=== PATIENT | female | born 1995 | race Caucasian/White ===

== ENCOUNTER 2022-03-20 16:00 | Emergency (ER) | payer OTHER, SELFPAY ==
[2022-03-20 16:11] VITALS: BP 131/70; PULSE 86; RESP 16; TEMP 37; O2SAT 99
--- NOTE | 2022-03-20 16:51 | ED.GENADULT ---
HPI - General Adult General Chief complaint: Nausea/Vomiting/Diarrhea Stated complaint: Vomiting/Diarrhes Source: patient Mode of arrival: ambulatory Limitations: no limitations History of Present Illness HPI narrative: Patient presents for evaluation of nausea, vomiting, diarrhea and abdominal cramping. Symptom onset yesterday. No blood or mucus in the stool. No recent antibiotic use. She recently changed to a vegetarian diet, approximately 1 week ago. No fever, chills, cough but she has had some shortness of breath. She smokes a few cigarettes per day. No recent sick contacts to her knowledge. She had COVID back about one year ago. Related Data Home Medications Medication Instructions Recorded Confirmed gabapentin 300 mg capsule 300 mg PO DAILY 03/20/22 03/20/22 Allergies Allergy/AdvReac Type Severity Reaction Status Date / Time No Known Allergies Allergy Verified 03/20/22 16:11 Review of Systems Review of Systems: CONSTITUTIONAL: Denies fever, chills, or sweats. EYES: Denies visual changes, redness, or discharge. ENT: Denies rhinorrhea, congestion, sore throat, or otalgia. CARDIOVASCULAR: Denies chest pain, palpitations, or edema. RESPIRATORY: Reports shortness of breath. Denies cough GASTROINTESTINAL:Reports abdominal cramping, nausea, vomiting and diarrhea. GENITOURINARY: Denies dysuria or hematuria. SKIN: Denies rash or itching. MUSCULOSKELETAL: Denies back pain, joint pain, or myalgia. NEUROLOGIC: Denies headache, numbness, dizziness, or weakness. PSYCHIATRIC: Denies anxiety or depression. [facility] Past Medical History Medical History (Updated 03/20/22 @ 17:28 by DEION RubiP, ) No pertinent past medical history Surgical History Surgical History No pertinent past surgical history Family History Family History Mother Family history non-contributory Social History Social History (Updated 03/20/22 @ 16:54 by DEION RubiP, ) Smoking packs per day: 0.2 Smoking cigarettes per day: 4.0 Smoking status: Current every day smoker Alcohol intake: current Alcohol use details: social Substance use: never Living arrangements: with family Gender identity (if verbalized by the patient): Female Sexual Orientation (if Verbalized by the Patient): Straight or Heterosexual Spiritual care concerns: No Exam Narrative: GENERAL: Well-appearing, well-nourished, and in no acute distress. HEAD: Normocephalic, atraumatic. EYES: PERRLA and EOMI. ENT: Nares clear, no rhinorrhea or epistaxis. Mucous membranes moist. Bilateral tonsillar enlargement without erythema or exudate. Bilateral TMs pearly bailey nonbulging NECK: Supple. No adenopathy or masses. No carotid bruits or JVD CHEST: Clear to auscultation. No respiratory distress. No wheezes rales or rhonchi HEART: Regular rate and rhythm. No murmur heard. Normal peripheral pulses. ABDOMEN: Soft, nontender, nondistended, normal active bowel sounds. EXTREMITIES: Normal range of motion. No edema. SKIN: Warm, dry, no rash. NEURO: No focal deficits. Alert and oriented x3. PSYCH: Normal mood and affect. Course Course Emergency Course: This is a 26-year-old female who presented for evaluation of nausea, vomiting, abdominal cramping, and diarrhea. On exam she has tonsillar swelling without erythema or exudate. She denies any sore throat. States that she typically has this finding on exam around this time of year. In terms of her GI symptoms, her influenza was negative. She was also tested for COVID which was negative. She was given Zofran. Symptoms improved. She feels well enough to go. Increase hydration. Continue to take Zofran as needed. She is advise she was given emergency department in the event that she experiences abdominal pain to rule out colitis. She should follow up with primary provide
[2022-03-20] MEDS: ONDANSETRON HCL ODT 4 MG TABLET PO (16:56)
== END 2022-03-20 17:33 | disposition home or self-care (01) ==
PROVIDERS: Emergency Provider Nurse Practitioner; PCP Emergency Medicine
DX: B34.9 Viral infection, unspecified (principal); Z20.822 Contact with and (suspected) exposure to COVID-19; F17.210 Nicotine dependence, cigarettes, uncomplicated; Z86.16 Personal history of COVID-19
CPT/HCPCS: 87426; 87804; 99213; A9270; C9803; G0463

== ENCOUNTER 2022-04-21 11:46 | Emergency (ER) | payer OTHER, MEDICAID, SELFPAY ==
--- NOTE | ~2022-04-21 | XR_ITS ---
EXAMINATION: XR wrist LT min 3V DATE: 04/21/2022 12:15 INDICATION: Left wrist injury. TECHNIQUE: 4 views of left wrist were obtained. COMPARISON: None. FINDINGS: Bone alignment is normal. No fracture. Joint spaces are well maintained. There is a dorsal laceration of the wrist. IMPRESSION: 1. No fracture or radiopaque foreign body. Reviewed, dictated and finalized at location A. SFORMER MOLDER
[2022-04-21 11:51] VITALS: BP 137/81; PULSE 92; RESP 18; TEMP 36.8; O2SAT 98
--- NOTE | 2022-04-21 12:04 | ED.UPPEXIN ---
HPI - Extremity Injury (Upper) General Chief Complaint: Extremity Injury, Lower Stated Complaint: Left Arm Injury Source: patient, family and RN notes reviewed History of Present Illness HPI narrative: 26 yo F presents to urgent care with complaints of left dorsal wrist pain and distal FA pain and swelling along with a laceration overlying the dorsal wrist. Pt states [employer], a lawnmower fell approximately 2 feet onto her left distal FA. Pt denies any numbness or tingling. Denies any other injury. Pt is UTD on her tetanus vaccination. Related Data Home Medications Medication Instructions Recorded Confirmed gabapentin 300 mg capsule 300 mg PO DAILY 03/20/22 03/20/22 Allergies Allergy/AdvReac Type Severity Reaction Status Date / Time No Known Allergies Allergy Verified 04/21/22 12:39 Review of Systems Review of Systems: CONSTITUTIONAL: Denies fever, chills, or sweats. EYES: Denies visual changes, redness, or discharge. ENT: Denies otalgia and sore throat CARDIOVASCULAR: Denies chest pain, palpitations, or edema. RESPIRATORY: Denies cough or dyspnea. GASTROINTESTINAL: Denies abdominal pain, nausea, vomiting, or diarrhea. GENITOURINARY: Denies dysuria or hematuria. SKIN: laceration MUSCULOSKELETAL: Left lower forearm/wrist pain and swelling. NEUROLOGIC: Denies headache, numbness, or weakness. [facility] Past Medical History Medical History (Updated 04/21/22 @ 12:21 by Judie Abbott, RN OR LVN) No pertinent past medical history Surgical History Surgical History No pertinent past surgical history Family History Family History Mother Family history non-contributory Social History Social History (Updated 03/20/22 @ 16:54 by Donavon Snyder, [facility], ) Smoking packs per day: 0.2 Smoking cigarettes per day: 4.0 Smoking status: Current every day smoker Alcohol intake: current Alcohol use details: social Substance use: never Living arrangements: with family Gender identity (if verbalized by the patient): Female Sexual Orientation (if Verbalized by the Patient): Straight or Heterosexual Spiritual care concerns: No Comments At the time of my signature, I reviewed and agree with the nursing past medical, surgical, social, and family history. There is no relevant family history pertinent to the patient complaint. Exam Narrative: GENERAL: This is a well-nourished, well-developed patient, in no apparent distress. HEAD: normocephalic, atraumatic. EYES: Sclera clear/white. Vision is grossly intact. EARS: External ears normal, auditory canals clear and without drainage. Hearing grossly intact. NOSE: External nose normal with no obvious nasal discharge, nares without redness, no rhinorrhea. NECK: Neck supple, non-tender without lymphadenopathy, masses or thyromegaly. CARDIOVASCULAR: Regular rate RESPIRATORY: No respiratory distress GASTROINTESTINAL: Abdomen soft, non-tender, nondistended. Bowel sounds are active. No hepato-splenomegaly, or palpable masses. No guarding. SKIN: 1.5 cm laceration to dorsal left wrist NEURO: awake, alert, and oriented to person, place and time. There were no obvious focal neurologic abnormalities. EXTREMITIES: Left distal forearm/dorsal wrist pain and swelling. Course Course Level of Care: Express Care Visit Vital Signs Vital signs: Vital Signs Temperature 98.3 F 04/21/22 11:51 Pulse Rate 92 04/21/22 11:51 Respiratory Rate 18 04/21/22 11:51 Blood Pressure 137/81 04/21/22 11:51 Pulse Oximetry 98 04/21/22 11:51 Oxygen Delivery Room Air 04/21/22 11:51 Temperature 98.3 F 04/21/22 11:51 Pulse Rate 92 04/21/22 11:51 Respiratory Rate 18 04/21/22 11:51 Blood Pressure 137/81 04/21/22 11:51 Pulse Oximetry 98 04/21/22 11:51 Oxygen Delivery Room Air 04/21/22 11:51 Reviewed Procedures Laceration Lacerati
== END 2022-04-21 12:50 | disposition home or self-care (01) ==
PROVIDERS: Emergency Provider Nurse Practitioner Family; PCP Family Medicine
DX: S61.512A Laceration without foreign body of left wrist, initial encounter (principal); F17.210 Nicotine dependence, cigarettes, uncomplicated; W45.8XXA Other foreign body or object entering through skin, initial encounter; W22.8XXA Striking against or struck by other objects, initial encounter
CPT/HCPCS: 12001; 73110; 96372; 99213; G0463

== ENCOUNTER 2023-06-11 10:27 | Emergency (ER) | payer OTHER, SELFPAY ==
[2023-06-11 10:33] VITALS: BP 109/75; PULSE 83; RESP 14; TEMP 37.3; O2SAT 100
--- NOTE | 2023-06-11 10:55 | ED.GENADULT ---
HPI - General Adult General Chief complaint: Nausea/Vomiting/Diarrhea Stated complaint: Vomiting Time Seen by Provider: 06/11/23 10:50 Source: patient, RN notes reviewed and old records reviewed Mode of arrival: ambulatory Limitations: no limitations History of Present Illness HPI narrative: 27 year old female who presents to [facility] with complaints of nausea and vomiting since last night with some lower abdominal cramping. Patient reports that she had 6 emesis last night and has had 2 emesis today, has been able to keep some water down this morning. Patient continues to state some nausea, denies any episodes of diarrhea or any known fevers. Patient does have some suprapubic tenderness on palpation, reports some lower back pain and some mild burning with urination. MD complaint: nausea and vomiting Onset (ago): day(s) (since yesterday evening) Severity scale (1-10): 6 Treatments prior to arrival: none Related Data Home Medications Medication Instructions Recorded Confirmed gabapentin 300 mg capsule 300 mg PO TID 03/20/22 06/11/23 Allergies Allergy/AdvReac Type Severity Reaction Status Date / Time No Known Allergies Allergy Verified 06/11/23 10:40 Review of Systems Review of Systems: CONSTITUTIONAL: Denies fever, chills, or sweats. EYES: Denies visual changes, redness, or discharge. ENT: Denies rhinorrhea, congestion, sore throat, or otalgia. CARDIOVASCULAR: Denies chest pain, palpitations, or edema. RESPIRATORY: Denies cough or dyspnea. GASTROINTESTINAL: Reports lower abdomen cramping, nausea, vomiting, no diarrhea. GENITOURINARY: Reports mild burning with urination, no hematuria, no CVA tenderness SKIN: Denies rash or itching. MUSCULOSKELETAL: Reports some lower back pain,no joint pain, or myalgia. NEUROLOGIC: Denies headache, numbness, or weakness. PSYCHIATRIC: Reports history of anxiety or depression. All systems reviewed & are unremarkable except as noted in HPI and below PMFSH Past Medical History Medical History (Updated 06/12/23 @ 13:19 by Zehra Latham NP) No pertinent past medical history Pain in both hands Surgical History Surgical History No pertinent past surgical history Family History Family History Mother Family history non-contributory Social History Social History (Updated 03/20/22 @ 16:54 by GARO Rubi, ) Smoking packs per day: 0.2 Smoking cigarettes per day: 4.0 Smoking status: Current every day smoker Alcohol intake: current Alcohol use details: social Substance use: never Living arrangements: with family Gender identity (if verbalized by the patient): Female Sexual Orientation (if Verbalized by the Patient): Straight or Heterosexual Spiritual care concerns: No Comments At time of signature, agree with nursing past medical, surgical, social and family history. There is no relevant family history pertinent to the presenting complaint Exam Narrative: GENERAL: Well-appearing, well-nourished, and in no acute distress. HEAD: Normocephalic, atraumatic. EYES: PERRLA and EOMI. ENT: Nares clear, no rhinorrhea or epistaxis. Mucous membranes moist.TM's normal throat pink with no swelling or exudates. NECK: Supple.no lymphadenopathy CHEST: Clear to auscultation. No respiratory distress.no cough noted SAO2 100% on room air HEART: Regular rate and rhythm. No murmur heard. Normal peripheral pulses. ABDOMEN: Soft, tender over suprapubic area, negative McBurney point tenderness, nondistended, normal active bowel sounds.nausea and vomiting episodes, reports mild burning with urination and some lower back pain. EXTREMITIES: Normal range of motion. No edema. SKIN: Warm, dry, no rash. NEURO: No focal deficits. Alert and oriented x3. Course Course Emergency Course: Patient is aware of diagnosis, understands and agrees to rashaun
== END 2023-06-11 11:45 | disposition home or self-care (01) ==
PROVIDERS: Emergency Provider Registered Nurse; PCP Internal Medicine
DX: R30.0 Dysuria (principal); R10.30 Lower abdominal pain, unspecified; M54.50 Low back pain, unspecified; R11.2 Nausea with vomiting, unspecified; F17.210 Nicotine dependence, cigarettes, uncomplicated
CPT/HCPCS: 81003; 81025; 87086; 99213; G0463

== ENCOUNTER 2024-02-28 16:19 | Emergency (ER) | payer OTHER, SELFPAY ==
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
[2024-02-28 16:38] VITALS: BP 113/61; PULSE 80; RESP 16; TEMP 36.8; O2SAT 100
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
== END 2024-02-28 17:35 | disposition home or self-care (01) ==
PROVIDERS: Emergency Provider Nurse Practitioner; PCP Internal Medicine
DX: S06.0XAA Concussion with loss of consciousness status unknown, initial encounter (principal); S39.012A Strain of muscle, fascia and tendon of lower back, initial encounter; S29.012A Strain of muscle and tendon of back wall of thorax, initial encounter; F17.210 Nicotine dependence, cigarettes, uncomplicated; V43.63XA Car passenger injured in collision with pick-up truck in traffic accident, initial encounter
CPT/HCPCS: 72100; 99213; G0463

== ENCOUNTER 2024-07-20 14:34 | Emergency (ER) | payer OTHER, SELFPAY ==
[2024-07-20 14:40] VITALS: BP 116/76; PULSE 79; RESP 20; TEMP 36.6; O2SAT 100
--- OUTSIDE RECORDS SUMMARY | 2024-07-20 14:49 | XMS_ITS | Encounter Summary ---
Author Organization [facility] Address [address] [place] [address] Phone Care Team Providers Care Street Cleaning Equipment Operator Name Role Phone Jacques Garner MD Primary Care Provider [phone] Reason for Visit * Reason Comments Medication Refill Encounter Details Date Type Department Care Team (Late st Contact Info) Description 08/19/2022 Refill [facility] - Internal Medicine - [place] [address] [place] [id number] Olya Coello, [facility] [address] [place] [address] Medication Refill Social History Tobacco Use Types Packs/Day Years Used Date Smoking Tobacco: Former Cigarettes Q uit: 04/18/2022 Passive Smoke Exposure: Past Smokeless Tobacco: Never Comments:socially Alcohol Use Standard Drinks/Week Comments Yes 0 (1 standard drink = 0.6 oz pure alcohol) binge drinking since 2019, drinks a fifth of [place] daily when binge drinking PHQ-2 Answer Date Recorded Total Score - Questions 1-9 3 02/2022 Education Answer Date Recorded What is the highest level of school you have completed or the highest degree you have received? GED or equivalent 02/2022 Sexually Active Control Partners Comments Yes Male Condom, Female Condom Female, Male Comments Unknown Sex and Gender Information Value Date Recorded Sex Assigned at Not on file Legal Sex Female 11:49 PM CDT Gender Identity Not on file Sexual Orientation Not on file documented as of this encounter Miscellaneous Notes * Telephone Encounter - Ck Mac MD - 08/20/2022 10:30 AM CDT Refill request approved. * Telephone Encounter - Christi Sanders RN - 08/20/2022 9:53 AM CDT Medication failed the protocol, provider to review and approve the medication order if appropriate. Requested Prescriptions Pending Prescriptions Disp Refills gabapentin (NEURONTIN) 300 MG Capsule [Pharmacy Med Name: Gabapentin 300 MG Oral Capsule] 30 Capsule 0 Sig: Take 1 Capsule by mouth nightly. Not Delegated - Anticonvulsants Excluding Benzodiazepines Protocol Failed - 08/19/2022 12:55 PM Failed - This refill cannot be delegated Passed - Visit with relevant provider in past 12 months or upcoming 90 days Recent Visits Date Type Provider Dept 07/10/22 Office Visit Jacques Garner MD [facility] 06/18/22 Office Visit Jacques Garner MD [facility] Showing recent visits within past 365 days and meeting all other requirements Future Appointments Date Type Provider Dept 09/25/22 Appointment Jacques Garner MD [facility] Showing future appointments within next 90 days and meeting all other requirements documented in this encounter Plan of Treatment Upcoming Encounters Date Type Department Care Team (Late st Contact Info) Description 08/11/2024 3:45 PM CDT Office Visit [facility] - Internal Medicine - [place] [address] [place] [id number] Jacques Garner MD [address] [place] [id number] documented as of this encounter Visit Diagnoses Not on filedocumented in this encounter Additional Health Concerns Assessment Noted Time PHQ-9 Depression Total Score: 3 06/19/19 3:00 PM CDT documented as of this encounter Care Teams Street Cleaning Equipment Operator Relationship Specialty Start Date End Date Jacques Garner MD [address] [place] [address] PCP - General Internal Medicine 06/18/22 documented as of this encounter
--- OUTSIDE RECORDS SUMMARY | 2024-07-20 14:49 | XMS_ITS | Referral Summary ---
Author Organization [facility] Address [address] [place] [address] Care Team Providers Care Technical Services Consultant Name Role Phone Cj Gray MD Unavailable Jacques Garner MD Primary Care Provider [phone] Encounters Date Type Department Care Team Description 07/08/2024 1:39 AM CDT - 07/08/2024 2:19 AM CDT Emergency [facility] Emergency Department [address] [place] [address] Discharge Disposition: Left without being seen from Last 3 Months Allergies No known active allergies Medications gabapentin (NEURONTIN) 300 mg capsule 09/20/19 22 Active ondansetron ODT (ZOFRAN-ODT) 4 mg disintegrating tabletIndications: nausea and vomiting Take 1 tablet (4 mg total) by mouth every 8 (eight) hours as needed for nausea or vomiting 12 tablet 05/23/19 23 Active Additional Information Patient not taking.Reported on 04/25/2023 baclofen (LIORESAL) 10 mg tablet Take 1 tablet (10 mg total) by mouth 3 (three) times a day as needed for muscle spasms for up to 20 days 20 tablet 05/23/19 23 Active dextroamphetamine- amphetamine XR (ADDERALL XR) 10 mg 24 hr capsule Take 1 capsule (10 mg total) by mouth daily 08/11/19 23 Active etonogestreL-ethin yl estradioL (NUVARING, ELURYNG) 0.12-0.015 mg/24 hr vaginal ring Insert vaginally and leave in place for 3 consecutive weeks, then remove for 1 week. 1 each 08/15/19 23 Active Additional Information Patient not taking.Reported on 04/25/2023 phenazopyridine (PYRIDIUM) 200 mg tablet Take 1 tablet (200 mg total) by mouth 3 (three) times a day as needed for bladder spasms 10 tablet 02/01/20 23 Active Additional Information Patient not taking.Reported on 04/25/2023 famotidine (PEPCID) 20 mg tabletIndications: Urticaria Treatment Adjunct Take 1 tablet (20 mg total) by mouth 2 (two) times a day 60 tablet 02/15/20 23 Active ciprofloxacin-dexA METHasone (Ciprodex) otic suspension INSTILL 4 DROPS INTO AFFECTED EAR(S) BY OTIC ROUTE 2 TIMES PER DAY FOR 7 DAYS 08/08/19 17 Active predniSONE (DELTASONE) 20 mg tablet Take by oral route. Active promethazine (PHENERGAN) 25 mg tablet TAKE 1 TABLET BY MOUTH EVERY 4 TO 6 HOURS NEEDED FOR NAUSEA 07/06/19 24 Active HYDROcodone-acetam inophen (NORCO) 5-325 mg per tabletIndications: Pain Take 1 tablet by mouth every 6 (six) hours as needed for pain 15 tablet 02/28/19 25 Active ketorolac (TORADOL) 10 mg tablet Take 1 tablet (10 mg total) by mouth every 6 (six) hours as needed for pain 20 tablet 02/28/19 25 Active methocarbamoL (ROBAXIN) 500 mg tablet Take 1 tablet (500 mg total) by mouth 2 (two) times a day 20 tablet 02/28/19 25 Active Active Problems Problem Noted Date Diagnosed Date Maternal family history of cancer 04/12/2023 Overview (04/12/2023): Per patient report - mother ovarian cancer, maternal gt aunt ovarian cancer, maternal gt aunt ovarian cancer, maternal grandmother colon cancer. Frequent UTI 04/12/2023 Encounter for preconception consultation 023 Encounter for evaluation regarding contraception options 08/14/2022 Assessment & Plan (08/14/2022 3:29 PM CDT): Options discussed She will try nuvaring Use reviewed To start day 4 of cycle Risk reviewed. Rto 3m for bp check. Amenorrhea 04/10/2021 Overview (04/10/2021): No period for 3m 03/2021 Assessment & Plan (08/14/2022 3:29 PM CDT): resolved Assessment & Plan (04/10/2021 11:23 AM DISPLAY DESIGNER): To usg, tsh RTO 3 weeks Routine screening for STI (sexually transmitted infection) 04/10/2021 Well woman exam 04/10/2021 Overview (04/10/2021): Pap- done today. To routine labs We didn't discuss colonoscopy, cuauhtemoc Gardasil- not discussed Contraception- condoms Assessment & Plan (08/14/2022 3:30 PM CDT): due Assessment & Plan (04/10/2021 11:25 AM DISPLAY DESIGNER): Pap done. RTO 12m. I will send the results to the portal. If she has not heard in a week, to call the office. Gc/ct done To LP and CMP secondary to BMI =33.6 To cbc for health maint Recurrent major depressive disorder 09/21/2018 Assessment & Plan (09/21/2018 2:32 PM CDT): Hold home Prozac because of intentional overdose. Anxiety 09/21/2018 Assessment & Plan (09/21/2018 2:32 PM CDT): Hold home Prozac because of intentional overdose. Hydroxyzine p.r.n. for anxiety. Resolved Problems Problem Noted Date Diagnosed Date Resolved Date Overdose of antidepressant, intentional self-harm, initial encounter 09/21/2018 04/10/2021 Assessment & Plan (09/21/2018 2:31 PM CDT): Patient reports taking approximately 26 pills of Prozac 20 mg. Poison control contacted, while requested labs and EKG are normal. Blood pressure now stable in normal range. Continue ICU monitoring overnight. Psychiatry consult placed in the ED. Social work consulted. Hold home Prozac. Self-inflicted injury 09/21/20182021 Assessment & Plan (09/21/2018 2:38 PM CDT): Lacerations on underside of chin, left wrist, and right thigh. All wounds a clean with no surrounding erythema, warmth, swelling, or drainage. Wound care per nursing protocol. Current moderate episode of major depressive disorder without prior episode 06/12/2018 Intentional drug overdose Immunizations Immunization Administration Dates Next Due Influenza, Quadrivalent, Spl it, Intramuscular 05/08/2013 Influenza, Split 05/08/2013 Influenza, Trivalent, IM (MDV) 05/08/2013 Tdap 11/15/2022(Deferred: Other - Pt stated she does not want shot at this time. She willl call her PCP and get the shot on saturday),06/28/2014 Social History Tobacco Use Types Packs/Day Years Used Date Smoking Tobacco: Some Days Cigarettes Smokeless Tobacco: Never Tobacco Cessation:Ready to Q uit: Not Asked; Counseling Given: Not Answered Alcohol Use Standard Drinks/Week Comments Not Currently 0 (1 standard drink = 0.6 oz pur e alcohol) Humiliation, Afraid, Rape, and Kick questionnair e Answer Date Recorded Within the last year, have y ou been afraid of your partner or ex-partner? No 04/10/2021 Within the last year, have y ou been humiliated or emotionally abused in other ways by your partner or ex-partner? No Within the last year, have y ou been kicked, hit, slapped, or otherwise physically hurt by your partner or ex-partner? No 04/10/2021 Within the last year, have y ou been raped or forced to have any kind of sexual activity by your partner or ex-partner? No 04/10/2021 PHQ-2 Answer Date Recorded PHQ-2 Score 1 10/11/2018 Personal Safety Answer Date Recorded Have you ever been in or are you currently in a harmful physical or emotional relationship or is someone making you feel afraid or unsafe? Denies 07/08/2024 Comments No Sex and Gender Information Value Date Recorded Sex Assigned at Not on file Legal Sex Female 1:41 AM DISPLAY DESIGNER Gender Identity Not on file Sexual Orientation Not on file Last Filed Vital Signs Vital Sign Reading Time Taken Comments Blood Pressure 118/82 07/08/2024 2:23 AM CDT Pulse 92 07/08/2024 2:23 AM CDT Temperature 36.8 C (98.2 F) 07/08/2024 2:23 AM CDT Respiratory Rate 18 07/08/2024 2:23 AM CDT Oxygen Saturation 100% 07/08/2024 2:23 AM CDT Inhaled Oxygen Concentration - - Weight 77.1 kg (169 lb 15.6 oz) 07/08/2024 2:23 AM CDT Height 165.1 cm (5' 5) 07/08/2024 1:3 3 AM CDT Body Mass Index 28.29 07/08/2024 1:33 AM CDT Plan of Treatment Not on file Procedures Procedure Name Priority Date/Time Associated Diagnosis Comments PAP, REFLEX HPV Routine 04/12/2023 3:40 PM DISPLAY DESIGNER Well woman exam from Last 3 Months or Most Recently Relevant to Health Maintenance Results * Pap, reflex HPV (04/12/2023 3:40 PM DISPLAY DESIGNER) Clinical indication Comment [facility] - 01 Comment:NEGATIVE FOR INTRAEP ITHELIAL LESION OR MALIGNANCY. Specimen adequacy: Comment [facility] - 01 Comment: Satisfactory for evaluation. Endocervical and/or squamous metaplastic cells (endocervical component) are present. Clinician provided ICD10 Comment [facility] 02 Comment:[id number] Performed by Comment [facility] - 01 Comment:Joan Biswas, Cytot echnologist (ASCP) . . [facility] - 01 Note: Comment [facility] 02 Comment: The Pap smear is a screening test designed to aid in the detection of premalignant and malignant conditions of the uterine cervix. It is not a diagnostic procedure and should not be used as the sole means of detecting cervical cancer. Both false-positive and false-negative reports do occur. Test methodology Comment [facility] 02 Comment: This liquid based ThinPrep(R) pap test was screened with the use of an image guided system. . Comment [facility] - 01 Comment: The HPV DNA reflex criteria were not met with this specimen result therefore, no HPV testing was performed. Thin prep 04/12/2023 3:40 PM DISPLAY DESIGNER 04/12/2023 Narrative [facility] - 04/17/2023 11:14 AM DISPLAY DESIGNER Performed at: - [facility] [address] [id number] Black Top Roller: Braxton Macias MD, Phone: [phone] Performed at: - [facility] [address] [id number] [place] Roller: Aliza Zhou MD, Phone: [phone] Specimen Comment: No. of containers..01 ThinPrep Vial us Noelle Cedillo INSPECTOR [facility] CYTOLOGY ORDERABLES Final Re sult [facility] - 01 [facility] 02 from Last 3 Months or Most Recently Relevant to Health Maintenance Insurance [employer] [facility] Address: [address] [address] [place] [address] [facility]O Address: [address] [address] [place] [address] IDPA [facility] H[facility] Advance Directives For more information, please contact: [phone] * Full Code (Latest Code Status on File) Date Activated Date Inactivated Comments 09/21/2018 11:12 AM 09/23/2018 6:40 PM Care Teams Technical Services Consultant Relationship Specialty Start Date End Date Jacques Garner MD [address] [place] [address] PCP - General Internal Medicine 06/18/22 Cj Gray MD Family Medicine 02/27/19
--- OUTSIDE RECORDS SUMMARY | 2024-07-20 14:49 | XMS_ITS | Clinical Summary ---
Author Organization [facility] Address [address] [place] [address] Phone Care Team Providers Care Pluck Trimmer Name Role Phone Jacques Garner MD Primary Care Provider Allergies No known active allergies Medications cetirizine (ZyrTEC) 10 MG Tablet Take 1 Tablet by mouth in the morning and at bedtime. 180 Tablet 1 4 Active naproxen (NAPROSYN) 500 MG Tablet Take 500 mg by mouth 2 times daily (with meals). 5 Active gabapentin (NEURONTIN) 100 MG Capsule Take 100 mg by mouth 3 times daily. Active amphetamine-dextro amphetamine (ADDERALL XR) 10 MG CAPSULE SR 24 HRIndications:Atte ntion deficit hyperactivity disorder (ADHD), predominantly inattentive type Take 1 Capsule by mouth every morning. 30 Capsule 5 Active baclofen (LIORESAL) 10 MG Tablet Take 1 Tablet by mouth Daily as needed for Muscle spasms. 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 Hydroxyzine p.r.n. for anxiety. Recurrent major depressive disorder 09/21/2018 Overview (12/28/2020): Last Assessment & Plan: Hold home Prozac because of intentional overdose. Resolved Problems Problem Noted Date Diagnosed Date Resolved Date Encounter for general adult medical examination without abnormal findings 06/12/2018 Current moderate episode of major depressive disorder without prior episode 06/12/2018 3 Encounters Date Type Department Care Team Description 07/08/2024 2:25 AM CDT - 07/08/2024 4:27 AM CDT Emergency [facility] Emergency [address] [place] [address] Angel Young MD Laceration of left forearm Discharge Disposition: Discharged to home or Selfcare 07/08/2024 Travel 05/04/2024 Refill [facility] Internal Medicine [facility] [address] [place] [address] Jacques Garner MD Medication Refill 04/27/2024 3:45 PM CDT Office Visit [facility] Internal Medicine [facility] [address] [place] [address] Jacques Garner MD Attention deficit hyperactivity disorder (ADHD), predominantly inattentive type (Primary Dx); Idiopathic peripheral neuropathy Discharge Disposition: Discharged to home or Selfcare 04/27/2024 Travel from Last 3 Months Immunizations Immunization Administration Dates Next Due Influenza Vaccine greater than 3 yrs 05/08/2013 Influenza, Injectable, Quadrivalent 05/08/2013 TDAP Vaccine 06/28/2014 Family History Medical History Relation Name Comments No Known Problems Father Diabetes Maternal Grandmother No Known Problems Mother No Known Problems Sister 1 Marisa No Known Problems Sister 2 Vibha No Known Problems Sister 3 Georgie Relation Name Status Comments Father Alive Maternal Grandmother Alive Mother Alive Sister 1 Marisa Alive Sister 2 Vibha Alive Sister 3 Georgie Alive Social History Tobacco Use Types Packs/Day Years Used Date Smoking Tobacco: Former Cigarettes Q uit: 04/18/2022 Passive Smoke Exposure: Past Smokeless Tobacco: Never Tobacco Cessation:Counseling Given: No Comments:socially Alcohol Use Standard Drinks/Week Comments Not Currently 0 (1 standard drink = 0.6 oz pure alcohol) binge drinking since 2019, drinks a fifth of [place] Mauricio daily when binge drinking [facility] Utilities Answer Date Recorded In the past 12 months has [employer], gas, oil, or water [employer] threatened to shut off services in your home? No 04/27/2024 Social Connection and Isolation Panel [NHANES] A nswer Date Recorded In a typical week, how many times do you talk on the phone with family, friends, or neighbors? Twice a week 04/27/2024 How often do you get togethe r with friends or relatives? Once a week 04/27/2024 How often do you attend buddhism or orthodox serv ices? Never 04/27/2024 Do you belong to any clubs o r organizations such as buddhism groups, unions, fraternal or athletic groups, or school groups? No 04/27/2024 How often do you attend meet ings of the clubs or organizations you belong to? Never 04/27/2024 Are you , , di vorced, , never , or living with a partner? Patient declined 04/27/2024 AUDIT-C Answer Date Recorded Q1: How often do you have a drink containing alcohol? Never 04/27/2024 Q2: How many drinks containi ng alcohol do you have on a typical day when you are drinking? Patient does not drink Q3: How often do you have si x or more drinks on one occasion? Never 04/27/2024 Overall Financial Resource Strain (CARDIA) Answe r Date Recorded How hard is it for you to pa y for the very basics like food, housing, medical care, and heating? Somewhat hard 04/27/2024 PHQ-2 Answer Date Recorded Total Score - Questions 1-9 0 02/18 [facility] Occupat ional Health - Occupational Stress Questionnaire Answer Date Recorded Do you feel stress - tense, restless, nervous, or anxious, or unable to sleep at night because your mind is troubled all the time - these days? Very much 04/27/2024 Exercise Vital Sign Answer Date Recorde d On average, how many days pe r week do you engage in moderate to strenuous exercise (like a brisk walk)? 0 days 04/27/2024 On average, how many minutes do you engage in exercise at this level? 0 min 04/27/2024 Hunger Vital Sign Answer Date Recorded Within the past 12 months, y ou worried that your food would run out before you got the money to buy more. Sometimes true Within the past 12 months, t he food you bought just didn't last and you didn't have money to get more. Sometimes true 11/2024 PRAPARE - Transportation Answer Date Re corded In the past 12 months, has l ack of transportation kept you from medical appointments or from getting medications? No 04/18 In the past 12 months, has l ack of transportation kept you from meetings, work, or from getting things needed for daily living? No 04/27/2024 Housing Stability Vital Sign Answer Blas e Recorded In the last 12 months, was t here a time when you were not able to pay the mortgage or rent on time? No 04/22/2023 In the last 12 months, how many places have you lived? 2 04/22/2023 In the last 12 months, was t here a time when you did not have a steady place to sleep or slept in a fdc (including now)? No 04/22/2023 Housing Stability Vital Sign Answer Blas e Recorded In the last 12 months, was t here a time when you were not able to pay the mortgage or rent on time? Yes 04/27/2024 In the past 12 months, how m any times have you moved where you were living? 0 04/27/2024 At any time in the past 12 m [facility], were you homeless or living in a fdc (including now)? No 04/27/2024 Education Answer Date Recorded What is the [...] Sign Reading Time Taken Comments Blood Pressure 137/80 07/08/2024 4:00 AM CDT Pulse 99 07/08/2024 4:15 AM CDT Temperature 36.2 C (97.1 F) 07/08/2024 2:44 AM CDT Respiratory Rate 19 07/08/2024 2:44 AM CDT Oxygen Saturation 100% 07/08/2024 4:15 AM CDT Inhaled Oxygen Concentration - - Weight 83 kg (183 lb) 07/08/2024 2:44 AM CDT Height 165.1 cm (5' 5) 07/08/2024 2:44 AM CDT Body Mass Index 30.45 07/08/2024 2:44 AM CDT Plan of Treatment Upcoming Encounters Date Type Department Care Team (Late st Contact Info) Description 08/11/2024 3:45 PM CDT Office Visit [facility] - Internal Medicine - [place] [address] [place] [address] Jacques Garner MD [address] [place] [address] Health Maintenance Due Date Last Done Comments Hepatitis C Virus (HCV) Screening 1993 Hepatitis B Immunization (1 of 3 - 19+ 3-dose series) 2012 SARS-COV-2 Immunization ( - 2023- season) 2023 HPV/Cotest 10/26/2023 Td Immunization Every 10 Yea rs (Adults With 1 Tdap) 06/28/2024 06/28/2014 Cervical Cancer Screening (CCS) 04/12/2026 Pap Smear 04/12/2026 04/12/2023 Respiratory Syncytial Virus (RSV) Immunization (Adult) (1 - 1-dose 75+ series) 2068 Influenza Immunization Discontinued 4, 05/08/2013 Human Papillomavirus (HPV) Immunization Aged Out No longer eligible based on patient's age to complete this topic Meningococcal Immunization (ACWY) Aged Out No longer eligible based on patient's age to complete this topic Pneumococcal Immunization Combined Aged Out No longer eligible based on patient's age to complete this topic Rotavirus Immunization Aged Out No lo nger eligible based on patient's age to complete this topic Procedures Procedure Name Priority Date/Time Associated Diagnosis Comments XR FOREARM LEFT STAT 07/08/2024 3:18 AM CDT LACERATION REPAIR Routine 07/08/2024 2:5 1 AM CDT from Last 3 Months Results * XR FOREARM LEFT (07/08/2024 3:18 AM CDT) Anatomical Region Laterality Modality UPPER EXTREMITY, forearm Left Digital Radiography 07/08/2024 3:31 AM CDT Impressions 07/08/2024 3:33 AM CDT IMPRESSION: No osseous injury or foreign body identified. Narrative 07/08/2024 3:33 AM CDT EXAM DESCRIPTION: XR FOREARM LEFT REASON FOR STUDY: Laceration left upper extremity TECHNIQUE: Frontal and lateral views of the left forearm . COMPARISON: None FINDINGS: BONES/JOINTS: No fracture, malalignment, or suspicious osseous lesion is identified. Joint spaces are preserved. SOFT TISSUES: Unremarkable. THIS IS AN ELECTRONICALLY VERIFIED FINAL REPORT 07/08/2024 3:31 AM - Electronically signed by Twin Gonzales M.D. AR: DAVID Report ID: [id number] Reading Location: [id number] Procedure Note Twin Gonzales MD - 07/08/2024 EXAM DESCRIPTION: XR FOREARM LEFT REASON FOR STUDY: Laceration left upper extremity TECHNIQUE: Frontal and lateral views of the left forearm . COMPARISON: None FINDINGS: BONES/JOINTS: No fracture, malalignment, or suspicious osseous lesion is identified. Joint spaces are preserved. SOFT TISSUES: Unremarkable. THIS IS AN ELECTRONICALLY VERIFIED FINAL REPORT 07/08/2024 3:31 AM - Electronically signed by Twin Gonzales M.D. AR: DAVID Report ID: [id number] Reading Location: [id number] IMPRESSION: No osseous injury or foreign body identified. Angel Young MD IMG DIAGNOSTIC ORDERABLES Final Result * Laceration Repair (07/08/2024 2:51 AM CDT) Narrative Angel Young MD - 07/08/2024 2:51 AM CDT Angel Young MD 07/08/2024 4:13 AM Laceration Repair Performed by: Angel Young MD Authorized by: Angel Young MD Consent: Consent obtained: Emergent situation and verbal Risks, benefits, and alternatives were discussed: yes Risks discussed: Infection, pain, need for additional repair and poor cosmetic result Alternatives discussed: No treatment [place] protocol: Required blood products, implants, devices, and special equipment available: yes Patient identity confirmed: Verbally with patient Anesthesia: Anesthesia method: Local infiltration Local anesthetic: Lidocaine 2% w/o epi Laceration details: Location: Shoulder/arm Shoulder/arm location: L lower arm Length (cm): 5 Depth (mm): 4 Pre-procedure details: Preparation: Patient was prepped and draped in usual sterile fashion and imaging obtained to evaluate for foreign bodies Exploration: Limited defect created (wound extended): no Hemostasis achieved with: Direct pressure Imaging obtained: x-ray Imaging outcome: foreign body not noted Wound exploration: wound explored through full range of motion and entire depth of wound visualized Wound extent: no fascia violation noted and no muscle damage noted Contaminated: no Treatment: Wound cleansed with: Wound cleanser. Amount of cleaning: Standard Irrigation solution: Sterile water Debridement: None Undermining: None Scar revision: no Layers/structures repaired: Deep subcutaneous Deep subcutaneous: Suture size: 4-0 Suture material: Vicryl Suture technique: Running Skin repair: Repair method: Sutures Suture size: 4-0 Suture material: Prolene Suture technique: Simple interrupted Number of sutures: 11 Approximation: Approximation: Close Repair type: Repair type: Intermediate Post-procedure details: Dressing: Antibiotic ointment, non-adherent dressing and sterile dressing Procedure completion: Tolerated well, no immediate complications Angel Young MD PROCEDURE/MINOR SURGICAL ORDERABLES Final Result from Last 3 Months Insurance [employer] Care Teams Pluck Trimmer Relationship Specialty Start Date End Date Jacques Garner MD [address] [place] [address] PCP - General Internal Medicine 06/18/22
--- OUTSIDE RECORDS SUMMARY | 2024-07-20 14:49 | XMS_ITS | Clinical Summary ---
Author Organization [facility] Address [address] [place] [address] Care Team Providers Care Brake Repair Supervisor Name Role Phone Cj Gray MD Unavailable Jacques Garner MD Primary Care Provider [phone] Allergies No known active allergies Medications gabapentin [...] then remove for 1 week. 1 each 12 08/15/19 23 Active Additional Information Patient not [...] resolved Assessment & Plan (04/10/2021 11:23 AM BARRELHEAD INSPECTOR): To usg, tsh RTO 3 weeks Routine screening for STI (sexually transmitted infection) 04/10/2021 Well woman exam 04/10/2021 Overview (04/10/2021): Pap- done today. To routine labs We didn't discuss colonoscopy, cuauhtemoc Gardasil- not discussed Contraception- condoms Assessment & Plan (08/14/2022 3:30 PM CDT): due Assessment & Plan (04/10/2021 11:25 AM BARRELHEAD INSPECTOR): Pap done. RTO 12m. I will send [...] major depressive disorder without prior episode 06/12/2018 2 Intentional drug overdose Encounters Date Type Department Care Team Description 07/08/2024 1:39 AM CDT - 07/08/2024 2:19 AM CDT Emergency [facility] Emergency Department [address] [place] [address] Discharge Disposition: Left without being seen from Last 3 Months Immunizations Immunization Administration Dates Next Due Influenza, Quadrivalent, Spl it, Intramuscular 05/08/2013 Influenza, Split 05/08/2013 Influenza, Trivalent, IM (MDV) 05/08/2013 Tdap 11/15/2022(Deferred: Other - Pt stated she does not want shot at this time. She willl call her PCP and get the shot on saturday),06/28/2014 Surgical History Surgery Date Site/Laterality Comments OTHER SURGICAL HISTORY 2006 Depression: Hospitalization OTHER SURGICAL HISTORY 2010 : Medical History Medical History Date Comments Depression 2006 Depression Hx Other Medical 2010 ; Outc ome: 41 week 7 lb(s) 11 oz Male Self-inflicted injury 09/21/2018 Intentional drug overdose (HCC) Current moderate episode of major depressive disorder without prior episode (HCC) 06/12/2018 Overdose of antidepressant, intentional self-harm, initial encounter (HCC) 09/21/2018 Family History Medical History Relation Name Comments Diabetes Maternal Grandmother Diabete s mellitus; Diabetes Mother Diabetes mellit us; Cancer Neg Hx no colon, breas t, mga- ovarian. cmt 04/10/21 Relation Name Status Comments Maternal Grandmother Mother Social History Tobacco Use Types Packs/Day Years [...] on file Legal Sex Female 1:41 AM BARRELHEAD INSPECTOR Gender Identity Not on file Sexual Orientation Not on file Obstetrics History Para Term AB IAB SAB Ectopic Multiple Livin g Live Births 2 1 1 0 1 1 0 0 0 1 1 Date Outcome GA Total Labor Labor/2nd/3rd Weight Sex Type Anes PTL Nicole A1 A5 Name Clin IAB 1 Term 40w0 d M Vag-Sp ont None Last Filed Vital Signs Vital Sign Reading [...] CDT Height 165.1 cm (5' 5) 07/08/2024 1:33 AM CDT Body Mass Index 28.29 07/08/2024 1:33 AM CDT Plan of Treatment Health Maintenance Due Date Last Done Comments Hepatitis C Screening 1993 Varicella Vaccines (1 of 2 - 13+ 2-dose series) 2006 Hepatitis B Screening 10/26/2011 Pneumococcal vaccine <65 (1 of 2 - PCV) 2012 Depression Screening 09/22/2019 09/21/2018 Cervical Cancer Screening 04/12/20242023, 04/10/2021 Regular Well Visit/Exam 18-64 04/12/2024, 06/18/2018 DTaP/Tdap/Td Vaccine (2 - Td or Tdap) 06/28/2024 06/28/2014 Influenza Vaccine (Season Ended) 2024 05/08/2013, 05/08/2013, 05/08/2013 HPV Vaccines Aged Out No longer eligi ble based on patient's age to complete this topic Procedures Procedure Name Priority Date/Time Associated Diagnosis Comments PAP, REFLEX HPV Routine 04/12/2023 3:40 PM BARRELHEAD INSPECTOR Well woman exam from Last 3 Months or Most Recently Relevant to Health Maintenance Results * Pap, reflex HPV (04/12/2023 3:40 PM BARRELHEAD INSPECTOR) Clinical indication Comment [facility] - 01 Comment:NEGATIVE [...] was performed. Thin prep 04/12/2023 3:40 PM BARRELHEAD INSPECTOR 04/12/2023 Narrative [facility] - 04/17/2023 11:14 AM BARRELHEAD INSPECTOR Performed at: - [facility] [address] [id number] Plate Painter Apprentice: Braxton Macias MD, Phone: [phone] Performed at: - [facility] [address] [id number] Plate Painter Apprentice: Aliza Zhou MD, Phone: [phone] Specimen Comment: No. of containers..01 ThinPrep Vial us Noelle Cedillo GEOPHYSICAL COMPUTER LAB CYTOLOGY ORDERABLES Final Re sult [facility] 01 LAB SUKH[facility]ER 02 from Last 3 Months or Most Recently Relevant to Health Maintenance Insurance IDPA [facility] CHOICE PLUS [facility] CHOICE PLUS IDIN [facility] HMO/PPO Address: [facility] [id number] [place] [address] Advance Directives For more information, please contact: [phone] * Full Code (Latest Code Status on File) Date Activated Date Inactivated Comments 09/21/2018 11:12 AM 09/23/2018 6:40 PM Care Teams Brake Repair Supervisor Relationship Specialty Start Date End Date Jacques Garner MD [address] [place] [address] PCP - General Internal Medicine 06/18/22 Cj Gray MD Family Medicine 02/27/19
--- OUTSIDE RECORDS SUMMARY | 2024-07-20 14:50 | XMS_ITS | Encounter Summary ---
Author Organization [facility] Address [address] [facility] [place] [address] Phone Care Team Providers Care Security System Administrator Name Role Phone Cj Gray MD Primary Care Provider [phone] Jacques Garner MD Primary Care Provider [phone] Reason for Visit * Reason Comments Medication Refill Encounter Details Date Type Department Care Team (Late st Contact Info) Description 01/24/2021 Refill [facility] - Family Medicine [facility] [address] [place] [address] jC Gray MD [address] [place] [address] Medication Refill Social History Tobacco Use Types Packs/Day Years Used Date Smoking Tobacco: Some Days Cigarettes Smokeless Tobacco: Never Alcohol Use Standard Drinks/Week Comments Yes 0 (1 standard drink = 0.6 oz pur e alcohol) PHQ-2 Answer Date Recorded Total Score - Questions 1-9 17 12/19 Sexually Active Control Partners Comments Yes Male Condom, Female Condom Female, Male Comments No Sex and Gender Information Value Date Recorded Sex Assigned at Not on file Legal Sex Female 11:49 PM CDT Gender Identity Not on file Sexual Orientation Not on file COVID-19 Exposure Response Date Recorded In the last month, have you been in contact with someone who was confirmed or suspected to have Coronavirus / COVID-19? No / Unsure 01/24/2021 3:20 PM SUPERINTENDENT DRILLING documented as of this encounter Miscellaneous Notes * Telephone Encounter - Dilcia Camargo RN - 01/25/2021 9:11 AM CST Last Rx for 30 days - ok for 90 day refill due to insurance? Per nursing clinical judgement, provider to review and approve the medication(s) order(s) if appropriate. Requested Prescriptions Pending Prescriptions Disp Refills escitalopram (LEXAPRO) 10 MG Tablet [Pharmacy Med Name: ESCITALOPRAM 10MG TABLETS] 90 Tablet 0 Sig: TAKE 1 TABLET BY MOUTH DAILY SSRI (6 Month Refill Only) Protocol Failed - 01/24/2021 5:07 PM Failed - Patient has established therapy with SSRI for at least 6 months Passed - No test in the past 12 months or most recent test was negative Passed - No active on record Passed - Visit with relevant provider in past 6 months or upcoming 90 days Recent Visits Date Type Provider Dept 01/24/21 Office Visit Cj Gray MD [facility] 12/28/20 Office Visit Cj Gray MD [facility] Showing recent visits within past 182 days and meeting all other requirements Future Appointments Date Type Provider Dept 02/21/21 Appointment Cj Gray MD [facility] Showing future appointments within next 90 days and meeting all other requirements Passed - Has an encounter in the past 6 months with a depression, anxiety, adjustment disorder, OCD, or PTSD visit diagnosis RINTENDENT DRILLING documented in this encounter Plan of Treatment Upcoming Encounters Date Type Department Care Team (Late st Contact Info) Description 08/11/2024 3:45 PM CDT [facility] Visit [facility] - Internal Medicine - [place] [address] [place] [id number] Jacques Garner MD [address] [place] [address] documented as of this encounter Visit Diagnoses Diagnosis Anxiety Anxiety state, unspecified documented in this encounter Additional Health Concerns Infection Onset Date Last Indicated Resolved Time COVID - 19 01/30/2021 01/30/2021 02/19/2021 12:1 6 AM SUPERINTENDENT DRILLING COVID - 19 Confirmed 01/30/2021 01/30/2021 022 12:16 AM SUPERINTENDENT DRILLING COVID - 19 08/23/2021 08/23/2021 09/02/2021 12:1 6 AM CDT COVID - 19 Confirmed 08/23/2021 08/23/2021 022 12:16 AM CDT Assessment Noted Time PHQ-9 Depression Total Score: 17 021 1:00 PM SUPERINTENDENT DRILLING documented as of this encounter Care Teams Security System Administrator Relationship Specialty Start Date End Date Cj Gray MD PCP - General Family Medicine 06/12/18 06/17/22 Jacques Garner MD [address] [place] [address] PCP - General Internal Medicine 06/18/22 documented as of this encounter
--- OUTSIDE RECORDS SUMMARY | 2024-07-20 14:50 | XMS_ITS | Encounter Summary ---
Author Organization [facility] Address [address] [facility] [place] [address] Phone Care Team Providers Care Customer Account Administrator Name Role Phone Jacques Garner MD Primary Care Provider [phone] Reason for Visit * Reason Comments Medication Refill Encounter Details Date Type Department Care Team (Late st Contact Info) Description 10/05/2022 Refill [facility] - Internal Medicine - [place] [address] [place] [phone] Jacques Garner MD [address] [facility] [place] [address] Medication Refill Social History Tobacco [...] Exposure Response Date Recorded In the last 10 days, have johnathon white been in contact with someone who was confirmed or suspected to have Coronavirus/COVID-19? No / Unsure 09/25/2022 3:18 PM CDT documented as of this encounter Miscellaneous Notes * Telephone Encounter - Christi Sanders RN - 10/05/2022 9:35 AM CDT Medication failed the protocol, provider to review and approve the medication order if appropriate. Requested Prescriptions Pending Prescriptions Disp Refills gabapentin (NEURONTIN) 300 MG Capsule [Pharmacy Med Name: Gabapentin 300 MG Oral Capsule] 90 Capsule 0 Sig: TAKE 1 CAPSULE BY MOUTH THREE TIMES DAILY Not Delegated - Anticonvulsants Excluding Benzodiazepines Protocol Failed - 10/05/2022 9:29 AM Failed - This refill cannot be delegated Passed - Visit with relevant provider in past 12 months or upcoming 90 days Recent Visits Date Type Provider Dept 09/25/22 Office Visit Jacques Garner MD [facility] 07/10/22 Office Visit Jacques Garner MD [facility] 06/18/22 Office Visit Jacques Garner MD [facility] Showing recent visits within past 365 days and meeting all other requirements Future Appointments Date Type Provider Dept 12/04/22 Appointment Jacques Garner MD [facility] Showing future appointments within next 90 days and meeting all other requirements documented in this encounter Plan of Treatment Upcoming Encounters Date Type Department Care Team (Late st Contact Info) Description 08/11/2024 3:45 PM CDT Office Visit [facility] - Internal Medicine - [place] [address] [place] [address] Jacques Garner MD [address] [place] [address] documented as of this encounter Visit Diagnoses Not on filedocumented in this encounter Additional Health Concerns Assessment Noted Time PHQ-9 Depression Total Score: 3 06/19/19 3:00 PM CDT documented as of this encounter Care Teams Customer Account Administrator Relationship Specialty Start Date End Date Jacques Garner MD [address] [place] [address] PCP - General Internal Medicine 06/18/22 documented as of this encounter
--- OUTSIDE RECORDS SUMMARY | 2024-07-20 14:50 | XMS_ITS | Encounter Summary ---
Author Organization [facility] Address [address] [facility] [place] [address] Phone Care Team Providers Care Restaurant Attendant Name Role Phone Cj Gray MD Primary Care Provider [phone] Jacques Garner MD Primary Care Provider [phone] Reason for Visit * Reason Comments Medication Refill Encounter Details Date Type Department Care Team (Late st Contact Info) Description 02/19/2021 Refill [facility] - Family Medicine [facility] [address] [place] [address] Cj Gray MD [address] [place] [address] Medication Refill Social History Tobacco Use Types Packs/Day Years Used Date Smoking Tobacco: Some Days Cigarettes Smokeless Tobacco: Never Comments:socially Alcohol Use Standard [...] have Coronavirus / COVID-19? No / Unsure 02/16/2021 4:02 AM BATTERY ASSEMBLER documented as of this encounter Miscellaneous Notes * Telephone Encounter - Chiqui Whittington RN - 02/20/2021 5:39 PM CST Medication failed the protocol, provider to review and approve the medication order if appropriate. Requested Prescriptions Pending Prescriptions Disp Refills escitalopram (LEXAPRO) 10 MG Tablet [Pharmacy Med Name: ESCITALOPRAM 10 MG TABLET] 30 Tablet 0 Sig: TAKE 1 TABLET BY MOUTH EVERY DAY SSRI (6 Month Refill Only) Protocol Failed - 02/19/2021 12:31 PM Failed - Active on medication list Failed - Patient has established therapy with [...] and meeting all other requirements Future Appointments No visits were found meeting these conditions. Showing future appointments within next 90 days and meeting all other requirements Passed - Has an encounter in the past 6 months with a depression, anxiety, adjustment disorder, OCD, or PTSD visit diagnosis busPIRone (BUSPAR) 10 MG Tablet [Pharmacy Med Name: BUSPIRONE HCL 10 MG TABLET] 90 Tablet 0 Sig: TAKE 1 TABLET BY MOUTH THREE TIMES A DAY Buspirone (6 Month Refill Only) Protocol Failed - 02/19/2021 12:31 PM Failed - Active on medication list Failed - Patient has established therapy with Buspirone for at least 6 months Passed - [...] and meeting all other requirements Future Appointments No visits were found meeting these conditions. Showing future appointments within next 90 days and meeting all other requirements Passed - Has an encounter in the past 6 months with a depression or anxiety visit diagnosis ERY ASSEMBLER documented in this encounter Plan of Treatment Upcoming Encounters Date Type Department Care Team (Late st Contact Info) Description 08/11/2024 3:45 PM CDT [facility] Visit [facility] [address] [place] [address] Jacques Garner MD [address] [place] [address] documented as of this encounter Visit Diagnoses Diagnosis Anxiety Anxiety state, unspecified documented in this encounter Additional Health Concerns Infection Onset Date Last Indicated Resolved Time COVID - 19 01/30/2021 01/30/2021 02/19/2021 12:1 6 AM BATTERY ASSEMBLER COVID - 19 Confirmed 01/30/2021 01/30/2021 022 12:16 AM BATTERY ASSEMBLER COVID - 19 08/23/2021 08/23/2021 09/02/2021 12:1 6 AM CDT COVID - 19 Confirmed 08/23/2021 08/23/2021 022 12:16 AM CDT Assessment Noted Time PHQ-9 Depression Total Score: 17 021 1:00 PM BATTERY ASSEMBLER documented as of this encounter Care Teams Restaurant Attendant Relationship Specialty Start Date End Date Cj Gray MD PCP - General Family Medicine 06/12/18 06/17/22 Jacques Garner MD [address] [place] [address] PCP - General Internal Medicine 06/18/22 documented as of this encounter
--- OUTSIDE RECORDS SUMMARY | 2024-07-20 14:50 | XMS_ITS | Encounter Summary ---
Author Organization [facility] Address [address] [place] [address] Phone Care Team Providers Care Subsorter Name Role Phone Cj Gray MD Primary Care Provider [phone] Jacques Garner MD Primary Care Provider [phone] Reason for Visit * Reason Comments Medication Refill Encounter Details Date Type Department Care Team (Late st Contact Info) Description 01/19/2021 Refill [facility] - Family Medicine [facility] [address] [place] [address] Cj Gray MD [address] [place] [address] Medication Refill Social History Tobacco Use Types [...] have Coronavirus / COVID-19? No / Unsure 12/28/2020 9:29 AM CLEAN UP HELPER BANQUET documented as of this encounter Miscellaneous Notes * Telephone Encounter - Dilcia Camargo RN - 01/19/2021 1:53 PM CST Medication failed the protocol, provider to review and approve the medication order if appropriate. Requested Prescriptions Pending Prescriptions Disp Refills busPIRone (BUSPAR) 10 MG Tablet [Pharmacy Med Name: BUSPIRONE HCL 10 MG TABLET] 90 Tablet 0 Sig: TAKE 1 TABLET BY MOUTH THREE TIMES A DAY Buspirone (6 Month Refill Only) Protocol Failed - 01/19/2021 11:34 AM Failed - Patient has established therapy with Buspirone for at least 6 months Passed - No test in the past 12 months or most recent test was negative Passed - No active on record Passed - Visit with relevant provider in past 6 months or upcoming 90 days Recent Visits Date Type Provider Dept 12/28/20 Office Visit Cj Gray MD [facility] Showing recent visits within past 182 days and meeting all other requirements Future Appointments Date Type Provider Dept 01/24/21 Appointment Cj Gray MD [facility] Showing future appointments within next 90 days and meeting all other requirements Passed - Has an encounter in the past 6 months with a depression or anxiety visit diagnosis escitalopram (LEXAPRO) 10 MG Tablet [Pharmacy Med Name: ESCITALOPRAM 10 MG TABLET] 30 Tablet 0 Sig: TAKE 1 TABLET BY MOUTH EVERY DAY SSRI (6 Month Refill Only) Protocol Failed - 01/19/2021 11:34 AM Failed - Patient has established therapy with SSRI for at least 6 months Passed - No test in the past 12 months or most recent test was negative Passed - No active on record Passed - Visit with relevant provider in past 6 months or upcoming 90 days Recent Visits Date Type Provider Dept 12/28/20 Office Visit Cj Gray MD [facility] Showing recent visits within past 182 days and meeting all other requirements Future Appointments Date Type Provider Dept 01/24/21 Appointment Cj Gray MD [facility] Showing future appointments within next 90 days and meeting all other requirements Passed - Has an encounter in the past 6 months with a depression, anxiety, adjustment disorder, OCD, or PTSD visit diagnosis N UP HELPER BANQUET documented in this encounter Plan of Treatment Upcoming Encounters Date Type Department Care Team (Late st Contact Info) Description 08/11/2024 3:45 PM CDT Office Visit [facility] - Internal Medicine [facility] [address] [place] [address] Jacques Garner MD [address] [place] [address] documented as of this encounter Visit Diagnoses Diagnosis Anxiety Anxiety state, unspecified documented in this encounter Additional Health Concerns Infection Onset Date Last Indicated Resolved Time COVID - 19 01/30/2021 01/30/2021 02/19/2021 12:1 6 AM CLEAN UP HELPER BANQUET COVID - 19 Confirmed 01/30/2021 01/30/2021 022 12:16 AM CLEAN UP HELPER BANQUET COVID - 19 08/23/2021 08/23/2021 09/02/2021 12:1 6 AM CDT COVID - 19 Confirmed 08/23/2021 08/23/2021 022 12:16 AM CDT Assessment Noted Time PHQ-9 Depression Total Score: 17 021 1:00 PM CLEAN UP HELPER BANQUET documented as of this encounter Care Teams Subsorter Relationship Specialty Start Date End Date Cj Gray MD PCP - General Family Medicine 06/12/18 06/17/22 Jacques Garner MD [address] [place] [address] PCP - General Internal Medicine 06/18/22 documented as of this encounter
--- NOTE | 2024-07-20 15:01 | ED.WOUNDLAC ---
HPI - Wound/Laceration General Chief Complaint: Wound/Laceration Stated Complaint: Suture Remove Time Seen by Provider: 07/20/24 14:50 Source: patient and RN notes reviewed Mode of arrival: ambulatory Limitations: no limitations History of Present Illness HPI narrative: 28-year-old female presents Express Care present complaining of suture removal. Patient had 11 sutures were placed approximately 10 to 11 days ago at [facility] ER for laceration from a knife to her left forearm when she accidentally struck herself with her own knife. Patient stated the injury occurred because she was afraid someone was breaking in her house. Patient says she was told to have a removed in 10-14 days. Patient denies any redness, swelling, pain, fevers, executive from the wound. Related Data Home Medications ?Medication ?Instructions ?Recorded ?Confirmed ?Last Taken ?Type dextroamphetamine-amphetamine ER PO 02/28/24 05/12/24 Unknown History 10 mg 24hr capsule,extend release gabapentin 300 mg capsule 100 mg PO BID 05/12/24 05/12/24 Unknown History Allergies Allergy/AdvReac Type Severity Reaction Status Date / Time No Known Allergies Allergy Verified 07/20/24 14:45 Review of Systems Review of Systems: CONSTITUTIONAL: Denies fever, chills, or sweats. EYES: Denies visual changes, redness, or discharge. ENT: Denies rhinorrhea, congestion, sore throat, or otalgia. CARDIOVASCULAR: Denies chest pain, palpitations, or edema. RESPIRATORY: Denies cough or dyspnea. GASTROINTESTINAL: Denies abdominal pain, nausea, vomiting, or diarrhea. GENITOURINARY: Denies dysuria or hematuria. SKIN: Denies rash or itching. Positive for laceration. MUSCULOSKELETAL: Denies back pain, joint pain, or myalgia. NEUROLOGIC: Denies headache, numbness, or weakness. PSYCHIATRIC: Denies anxiety or depression. All other systems reviewed are negative, except as documented in HPI. [facility] Past Medical History Medical History Migraines Anxiety Pain in both hands No pertinent past medical history Surgical History Surgical History No pertinent past surgical history Family History Family History Mother Depression Diabetes mellitus Heart disease Grandparent Cerebrovascular accident Diabetes mellitus Heart disease Colon polyp Father Depression Pancreatic cancer Other Breast cancer Ovarian cancer Social History Social History Smoking packs per day: 0.2 Smoking cigarettes per day: 4.0 Smoking status: Current every day smoker Tobacco type: cigarettes Alcohol intake: former Substance use: never Substance use type: does not use Do You Feel Safe in your Home?: Yes Lack of Transportation: No Lack of Food: Never True Current Housing: I Have Housing Concerned About Future Housing: No Difficulty Paying Gas/Electric Bills: No Difficulty Paying for Meds: No Currently Unemployed: No Education: High School Diploma/GED Difficulty w/ Childcare or Family Care: No Living arrangements: with family Occupation/Education: occupation Gender identity (if verbalized by the patient): Female Sexual Orientation (if Verbalized by the Patient): Straight or Heterosexual Spiritual care concerns: No Comments At the time of my signature, I reviewed and agree with the nursing past medical, surgical, social, and family history. There is no relevant family history pertinent to the patient complaint. Exam Narrative: GENERAL: This is a well-nourished, well-developed adult, in no apparent distress. They are non ill-appearing, nontoxic appearing. HEAD: normocephalic, atraumatic. EYES: Sclera clear/white. Conjunctiva normal. Vision is grossly intact. Extraocular movements intact EARS: External ears normal,Hearing grossly intact. NOSE: External nose normal THROAT: Mucous membranes NECK: Neck supple, CARDIOVASCULAR: Regular rate and rhythm RESPIRATORY: Respiratory rate normal, respiratory effort nonlabored, no respiratory distress SKIN: Forearm: Laceration present with sutures in place. Eleven sutures are present. No Evidence of infection. Redness, swelling, discharge, or pain. Laceration is well approximated NEURO: awake, alert, and oriented to person, place and time. There were no obvious focal neurologic abnormalities. EXTREMITIES: No joint tenderness, effusion, or edema noted. BACK: Nontender without deformity. Course Course Emergency Course: Portions of this record may have been created with voice recognition software Level of Care: Express Care Visit Vital Signs Vital signs: Vital Signs Temperature 97.8 F 07/20/24 14:40 Pulse Rate 79 07/20/24 14:40 Respiratory Rate 20 07/20/24 14:40 Blood Pressure 116/76 07/20/24 14:40 Pulse Oximetry 100 07/20/24 14:40 Oxygen Delivery Room Air 07/20/24 14:40 Temperature 97.8 F 07/20/24 14:40 Pulse Rate 79 07/20/24 14:40 Respiratory Rate 20 07/20/24 14:40 Blood Pressure 116/76 07/20/24 14:40 Pulse Oximetry 100 07/20/24 14:40 Oxygen Delivery Room Air 07/20/24 14:40 Reviewed Procedures Other Procedure Procedure 1: Other Procedure: Eleven sutures are removed today. Patient tolerated procedure well. Wound appears well approximated. The subcutaneous tissues visualized. Two Steri-Strips applied over distal area of the laceration today to improve approximation of the epidermal layer. MDM - Wound/Laceration MDM Narrative Medical decision making narrative: Eleven sutures were removed today. Patient tolerated procedure well. Two Steri-Strips applied to the distal part of the laceration approximate the epidermis more. No signs of infection. Wound is healing well. Discussed physical exam findings. Advised supportive measures and signs/symptoms to go to the ER. Pt is appropriate for outpt treatment and f/u. Differential Diagnosis Differential diagnosis: Likely laceration and other (Suture removal, cellulitis) Critical Care Time Critical Care Time Critical Care Time: No Discharge Plan Discharge Clinical Impression: Encounter for removal of sutures Patient Disposition: Home Condition: Stable Instructions: Care For Your Stitches (ED) Additional Instructions: Your sutures were removed today. Keep the Steri-Strips on for next 4 days then removed them if they have not rolled off he had. Continue to wash the wound daily with mild soap and water. Go to the ER for any signs of infection such as increased redness, swelling, discharge, pain, or fevers. Follow-up with PCP in 3-5 days. Patient Language: Albanian Prescriptions: No Action gabapentin 300 mg capsule 100 mg PO BID dextroamphetamine-amphetamine 10 mg capsule,extended release 24hr PO Follow-up/Referrals: Pascual,Jacques Lan MD [Primary Care Provider] - Time of Disposition: 15:00
== END 2024-07-20 15:07 | disposition home or self-care (01) ==
PROVIDERS: PCP Internal Medicine
DX: S51.812D Laceration without foreign body of left forearm, subsequent encounter (principal); W26.0XXD Contact with knife, subsequent encounter; F17.210 Nicotine dependence, cigarettes, uncomplicated
CPT/HCPCS: 99211; G0463